=== PATIENT | female | born 1985 | race Caucasian/White ===

== ENCOUNTER → 2020-10-23 | Outpatient (CLI) | payer OTHER ==
[~2020-10-23] VITALS: Ht 170.2 cm; Wt 68.0 kg
[~2020-10-23] MED LIST: COLACE100 MG PO; HYDROCODON-ACE1 EAC4 PO; IBU600 MG PO
== END ==
LOC: OPSV 08:00
DX: O99.019 Anemia complicating pregnancy, unspecified trimester (principal); D64.9 Anemia, unspecified
CPT/HCPCS: 96365; J1756

== ENCOUNTER → 2020-11-14 | Outpatient (CLI) | payer OTHER ==
[~2020-11-14] VITALS: Ht 170.2 cm; Wt 81.6 kg
== END ==
LOC: OPSV 10:33
DX: O99.019 Anemia complicating pregnancy, unspecified trimester (principal)
CPT/HCPCS: 96365; J1756

== ENCOUNTER → 2020-11-28 | Outpatient (CLI) | payer OTHER ==
[~2020-11-28] VITALS: Ht 170.2 cm; Wt 81.6 kg
== END ==
LOC: OPSV 10:20
DX: O99.019 Anemia complicating pregnancy, unspecified trimester (principal); D64.9 Anemia, unspecified
CPT/HCPCS: 96365; J1756

== ENCOUNTER 2020-12-20 21:35 | Inpatient (IN) | payer OTHER ==
[2020-12-20 22:48] LABS: HEMOGLOBIN 11.4 gm/dl (12.3-15.3); RED BLOOD COUNT 4.5 M/UL (4.00-5.10); WHITE BLOOD COUNT 17.5 K/UL (4.5-11.0)
[2020-12-21] MEDS ORDERED: HYDROCODON-ACE1 EAC4 PO (02:21)
[2020-12-21] MEDS ORDERED: COLACE100 MG PO (02:21)
[2020-12-21] MEDS ORDERED: IBU600 MG PO (02:21)
== END 2020-12-23 16:54 | disposition home or self-care (01) | DRG 788 ==
LOC: GENOP 21:35 → OB 22:16
PROVIDERS: Obstetrics & Gynecology; ADMIT Obstetrics & Gynecology
PROC: 10D00Z1 Extraction of Products of Conception, Low, Open Approach (ICD-10-PCS; 2020-12-21)
PROC: 4A1HX4Z Monitoring of Products of Conception, Cardiac Electrical Activity, External Approach (ICD-10-PCS; principal; 2020-12-21 00:55)
DX: O76 Abnormality in fetal heart rate and rhythm complicating labor and delivery (principal); Z3A.40 40 weeks gestation of pregnancy; Z37.0 Single live birth; O34.211 Maternal care for low transverse scar from previous cesarean delivery; N85.8 Other specified noninflammatory disorders of uterus; O99.824 Streptococcus B carrier state complicating childbirth; O99.334 Smoking (tobacco) complicating childbirth; F17.210 Nicotine dependence, cigarettes, uncomplicated; O62.2 Other uterine inertia; Z20.822 Contact with and (suspected) exposure to COVID-19
CPT/HCPCS: 36415; 74018; 80307; 81001; 82800; 85014; 85018; 85025; 90715; J0690; J1885; J2210; J2274; J2405; J2550; J2590; J3010; J7040; J7120; U0002